=== PATIENT | female | born 1995 | race Two or more races ===

== ENCOUNTER 2018-03-25 13:45 | Inpatient (IN) | payer OTHER ==
[~2018-03-25] VITALS: Ht 165.1 cm; Wt 76.7 kg
[~2018-03-25 13:45] MED LIST: DICY20TA; FLORA-Q 2 CAPSU1 CAP; KETO10TA2 PO; NITROFURANTOIN50 MG; [UNRECOGNIZED DRUG - OTHER]
[2018-04-01] MEDS ORDERED: FOLIC ACID0.8 MG PO (06:26)
== END 2018-04-03 13:50 | disposition home or self-care (01) | DRG 807 ==
LOC: OB/GYN 04-01 06:00 → LDR 04-01 06:00 → OB/GYN 04-01 13:26
PROVIDERS: ADMIT Specialist
PROC: 10E0XZZ Delivery of Products of Conception, External Approach (ICD-10-PCS; principal; 2018-04-01)
PROC: 4A1HXCZ Monitoring of Products of Conception, Cardiac Rate, External Approach (ICD-10-PCS; 2018-04-01)
DX: O80 Encounter for full-term uncomplicated delivery (principal); Z37.0 Single live birth; Z3A.39 39 weeks gestation of pregnancy

== ENCOUNTER 2019-12-06 20:43 | Emergency (ER) | payer OTHER ==
[~2019-12-06] VITALS: Ht 162.6 cm; Wt 61.2 kg
[~2019-12-06 20:43] MED LIST changes: +FOLIC ACID0.8 MG PO
[2019-12-07] MEDS ORDERED: KEFLEX500 MG PO (03:40)
[2019-12-07] MEDS ORDERED: ZOFRAN4 MG PO (03:40)
== END 2019-12-07 04:22 | disposition home or self-care (01) ==
LOC: ER 20:43
DX: O21.8 Other vomiting complicating pregnancy (principal); O23.31 Infections of other parts of urinary tract in pregnancy, first trimester; Z3A.01 Less than 8 weeks gestation of pregnancy; Z03.818 Encounter for observation for suspected exposure to other biological agents ruled out

== ENCOUNTER 2019-12-22 22:11 | Emergency (ER) | payer OTHER ==
[~2019-12-22] VITALS: Ht 162.6 cm; Wt 61.2 kg
[~2019-12-22 22:11] MED LIST changes: +KEFLEX500 MG PO; +ZOFRAN4 MG PO
[2019-12-23] MEDS ORDERED: MACROBID 100 M100 MG PO (04:23)
== END 2019-12-23 05:19 ==
LOC: ER 22:11
DX: O26.891 Other specified pregnancy related conditions, first trimester (principal); K29.60 Other gastritis without bleeding; O23.31 Infections of other parts of urinary tract in pregnancy, first trimester; Z03.818 Encounter for observation for suspected exposure to other biological agents ruled out; Z3A.09 9 weeks gestation of pregnancy

== ENCOUNTER 2020-07-03 13:00 | Inpatient (IN) | payer OTHER ==
[~2020-07-03] VITALS: Ht 167.6 cm; Wt 80.7 kg
[~2020-07-03 13:00] MED LIST changes: +MACROBID 100 M100 MG PO
[2020-07-20] MEDS ORDERED: PRENATAL TABLE1 EAC1 (07:37)
== END 2020-07-22 10:49 | disposition home or self-care (01) | DRG 807 ==
LOC: LDR 07-20 05:22 → OB/GYN 07-20 13:12 → LDR 07-27 13:00
PROVIDERS: ADMIT Specialist; ATTEND Specialist
PROC: 10E0XZZ Delivery of Products of Conception, External Approach (ICD-10-PCS; principal; 2020-07-20)
PROC: 10907ZC Drainage of Amniotic Fluid, Therapeutic from Products of Conception, Via Natural or Artificial Opening (ICD-10-PCS; 2020-07-20)
PROC: 4A1HXFZ Monitoring of Products of Conception, Cardiac Rhythm, External Approach (ICD-10-PCS; 2020-07-20)
DX: O80 Encounter for full-term uncomplicated delivery (principal); Z37.0 Single live birth; Z3A.39 39 weeks gestation of pregnancy; Z20.822 Contact with and (suspected) exposure to COVID-19

== ENCOUNTER 2021-02-26 11:36 | Emergency (ER) | payer OTHER ==
[~2021-02-26] VITALS: Ht 165.1 cm; Wt 65.8 kg
[~2021-02-26 11:36] MED LIST changes: +PRENATAL TABLE1 EAC1
== END 2021-02-26 18:40 | disposition home or self-care (01) ==
LOC: ER 11:36
DX: B34.9 Viral infection, unspecified (principal); Z20.822 Contact with and (suspected) exposure to COVID-19

== ENCOUNTER 2022-01-29 22:02 | Inpatient (IN) | payer OTHER ==
[~2022-01-29] VITALS: Ht 167.6 cm; Wt 81.6 kg
[2022-01-30] MEDS ORDERED: PRENATAL TABLE1 EAC1 PO (00:48)
[2022-01-31] MEDS ORDERED: AZITHROMYCIN250 MG PO (07:40)
== END 2022-01-31 10:06 | disposition home or self-care (01) | DRG 833 ==
LOC: LDR 22:02
PROVIDERS: ADMIT Specialist; ATTEND Specialist
PROC: 4A1HXCZ Monitoring of Products of Conception, Cardiac Rate, External Approach (ICD-10-PCS; principal; 2022-01-29)
PROC: BU4CZZZ Ultrasonography of Uterus and Ovaries (ICD-10-PCS; 2022-01-30)
PROC: BY4FZZZ Ultrasonography of Third Trimester, Single Fetus (ICD-10-PCS; 2022-01-30)
DX: O26.893 Other specified pregnancy related conditions, third trimester (principal); R50.9 Fever, unspecified; O60.03 Preterm labor without delivery, third trimester; O26.843 Uterine size-date discrepancy, third trimester; O36.8130 Decreased fetal movements, third trimester, not applicable or unspecified; Z3A.36 36 weeks gestation of pregnancy; Z20.822 Contact with and (suspected) exposure to COVID-19; R10.2 Pelvic and perineal pain; O23.43 Unspecified infection of urinary tract in pregnancy, third trimester

== ENCOUNTER 2022-02-17 13:15 | Inpatient (IN) | payer OTHER ==
[~2022-02-17] VITALS: Ht 167.6 cm; Wt 79.4 kg
[~2022-02-17 13:15] MED LIST changes: +AZITHROMYCIN250 MG PO; +PRENATAL TABLE1 EAC1 PO
== END 2022-02-22 13:22 | disposition home or self-care (01) | DRG 798 ==
LOC: EDSTATUS 13:15 → OB/GYN 02-20 07:25 → LDR 02-20 07:25 → OB/GYN 02-20 14:14 → LDR 02-24 13:15
PROVIDERS: ADMIT Specialist; ATTEND Specialist
PROC: 10E0XZZ Delivery of Products of Conception, External Approach (ICD-10-PCS; principal; 2022-02-20)
PROC: 4A1HXCZ Monitoring of Products of Conception, Cardiac Rate, External Approach (ICD-10-PCS; 2022-02-20)
PROC: 0UB70ZZ Excision of Bilateral Fallopian Tubes, Open Approach (ICD-10-PCS; 2022-02-21)
DX: O80 Encounter for full-term uncomplicated delivery (principal); Z37.0 Single live birth; Z3A.39 39 weeks gestation of pregnancy; Z30.2 Encounter for sterilization; Z20.822 Contact with and (suspected) exposure to COVID-19

== ENCOUNTER 2022-04-15 09:39 | Emergency (ER) | payer OTHER ==
[~2022-04-15] VITALS: Ht 167.6 cm; Wt 72.6 kg
== END 2022-04-15 17:02 | disposition home or self-care (01) ==
LOC: ER 09:39
DX: K52.9 Noninfective gastroenteritis and colitis, unspecified (principal); J32.8 Other chronic sinusitis; Z20.822 Contact with and (suspected) exposure to COVID-19

== ENCOUNTER 2022-11-16 22:13 | Emergency (ER) | payer OTHER ==
[~2022-11-16] VITALS: Ht 167.6 cm; Wt 66.7 kg
[2022-11-17] MEDS ORDERED: ZOFRAN8 MG PO (10:42)
[2022-11-17] MEDS ORDERED: PEPCID20 MG PO (10:42)
== END 2022-11-17 10:50 | disposition home or self-care (01) ==
LOC: ER 22:13 → EMR PED 22:40 → ER 22:40
PROVIDERS: General Practice
DX: K52.89 Other specified noninfective gastroenteritis and colitis (principal); Z20.822 Contact with and (suspected) exposure to COVID-19